=== PATIENT | male | born 1950 | race Caucasian/White ===

== ENCOUNTER 2017-05-08 08:14 | Day surgery (SDC) | payer MEDICARE, OTHER ==
[~2017-05-08] VITALS: Ht 182.9 cm; Wt 85.0 kg
[2017-05-08] MEDS ORDERED: LACTATED RINGERS 1,000 ML IV SCH ×2 (08:51→11:08)
[2017-05-08] MEDS ORDERED: BUPIVACAINE/PF 0.5% ONE (08:52)
[2017-05-08] MEDS ORDERED: SODIUM BICARBONATE 4.2%, 5ML ONE (08:52)
[2017-05-08] MEDS ORDERED: LIDOCAINE/PF 1%, 30ML ONE (08:53)
[2017-05-08] MEDS ORDERED: ACETAMINOPHEN 500 MG TABLET PO STA (09:03)
[2017-05-08] MEDS ORDERED: GABAPENTIN 300 MG CAPSULE PO STA (09:03)
[2017-05-08 09:07] VITALS: BP 173/92
[2017-05-08] MEDS ORDERED: LIDOCAINE 1%, 2ML ONE ×2 (09:37)
[2017-05-08] MEDS ORDERED: REMIFENTANIL 1 MG ONE (09:47)
[2017-05-08] MEDS ORDERED: MIDAZOLAM 1 MG/ML, 2ML ONE (09:48)
[2017-05-08] MEDS ORDERED: FENTANYL PF 100 MCG/2ML ONE (09:48)
[2017-05-08] MEDS ORDERED: ENAL10TA PO (09:48)
[2017-05-08] MEDS ORDERED: AMLO5TAB2 PO (09:48)
[2017-05-08] MEDS ORDERED: CEFAZOLIN 1,000 MG ONE (09:59)
[2017-05-08] MEDS ORDERED: ONDANSETRON 2MG/ML, 2ML ONE (09:59)
[2017-05-08] MEDS ORDERED: KETOROLAC 30 MG/1 ML ONE (09:59)
[2017-05-08] MEDS ORDERED: DEXAMETHASONE 4 MG/ML, 1ML ONE (09:59)
[2017-05-08] MEDS ORDERED: PROPOFOL 10 MG/ML, 20ML ONE (09:59)
[2017-05-08] MEDS ORDERED: PROMETHAZINE 25 MG/ML, 1ML IV PRN (11:00)
[2017-05-08] MEDS ORDERED: HYDROmorphone 1 MG/ML, 1ML IV PRN (11:00)
[2017-05-08] MEDS ORDERED: OXYcodone 5 MG/5 ML ORAL.SOL UDC PO PRN (11:00)
[2017-05-08] MEDS ORDERED: FENTANYL PF 100 MCG/2ML IV PRN (11:00)
[2017-05-08] MEDS ORDERED: hydrALAzine 20 MG/ML, 1ML IV PRN (11:00)
[2017-05-08] MEDS ORDERED: ACETAMINOPHEN 325 MG TABLET PO PRN (11:00)
[2017-05-08] MEDS ORDERED: ONDANSETRON 2MG/ML, 2ML IVPush PRN ×2 (11:00→11:30)
[2017-05-08] MEDS ORDERED: LABETALOL 5MG/ML, 20ML IV PRN (11:00)
[2017-05-08] MEDS ORDERED: MEPERIDINE/PF 25MG/0.5ML IVPush PRN (11:00)
[2017-05-08] MEDS ORDERED: OXYcodone 5 MG/5 ML ORAL.SOL UDC ONE (11:01)
[2017-05-08] MEDS ORDERED: ACETAMINOPHEN 650 MG/20.3 ML UDC ONE (11:02)
[2017-05-08] MEDS ORDERED: ACETAMINOPHEN 325 MG/10.15 ML UDC ONE (11:02)
[2017-05-08] MEDS ORDERED: HYDROmorphone 2 MG/ML, 1ML IVPush PRN (11:30)
[2017-05-08] MEDS ORDERED: DIPHENHYDRAMINE 50 MG/ML, 1ML IVPush PRN (11:30)
[2017-05-08] MEDS ORDERED: OXYcodone/APAP 5/325MG TABLET PO PRN (11:30)
== END 2017-05-08 13:00 ==
LOC: OUT 08:14
PROVIDERS: ATTEND Surgery
DX: K42.9 Umbilical hernia without obstruction or gangrene (principal); I10 Essential (primary) hypertension; Z72.89 Other problems related to lifestyle; Z88.0 Allergy status to penicillin; Z98.890 Other specified postprocedural states
CPT/HCPCS: 49585; 93005; J0690; J1100; J1885; J2250; J2405; J2704; J3010; J3490